=== PATIENT | female | born 1985 | race Caucasian/White ===

== ENCOUNTER 2018-04-12 02:54 | Emergency (ER) | payer OTHER ==
[2018-04-12] MEDS ORDERED: ONDANSETRON DISINTEGRATING 4 MG TAB PO ONE (03:28)
[2018-04-12] MEDS ORDERED: CEPHALEXIN 500 MG CAP PO ONE (03:28)
--- NOTE | 2018-04-12 03:37 | EDPHY ---
H & P Time Seen by Provider: 04/12/18 03:10 HPI/ROS: CHIEF COMPLAINT: Urinary tract infection HISTORY OF PRESENT ILLNESS: Patient states she has history of chronic UTIs and is supposed to be on Macrobid once daily for prevention. She states she does not do this but did start Macrobid on Tuesday when she developed "funny smelling urine". She states she also had some dysuria. She only had 5 Macrobid pills left and took 2 on Tuesday, 2 on Tuesday, only 1 on Tuesday. She was feeling better but then yesterday, Tuesday, it"came back with a vengeance". Along with mild dysuria she has nausea but no vomiting. Also complaining of left flank pain which is a rare symptom for her. She denies fevers, abdominal pain, diarrhea. REVIEW OF SYSTEMS: Constitutional: No fever, no chills. Eyes: No discharge. ENT: No sore throat. Cardiovascular: No chest pain, no palpitations. Respiratory: No cough, no shortness of breath. Gastrointestinal: No abdominal pain, no vomiting. Genitourinary: Per HPI Musculoskeletal: Left back pain. Skin: No rashes. Neurological: No headache. General Appearance: Alert, uncomfortable appearing. Eyes: Pupils equal and round no pallor or injection. ENT, Mouth: Mucous membranes moist. Respiratory: There are no retractions, lungs are clear to auscultation. Cardiovascular: Regular rate and rhythm. Gastrointestinal: Abdomen is soft and nontender, no masses, bowel sounds normal. Left CVA tenderness. Neurological: Awake, alert, no focal motor deficits. Normal gait. Skin: Warm and dry, no rashes. Musculoskeletal: Neck is supple nontender. Extremities are symmetrical, full range of motion, no edema. Psychiatric: Patient is oriented X 3, there is no agitation. Medical/surgical history: Chronic UTIs. Atrophic left kidney, congenital. Tubal ligation with reversal. Social history: Denies alcohol, tobacco, drugs. Is . 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 Smoking Status: Never smoked Constitutional: Initial Vital Signs Temperature (C) 36.9 C 04/12/18 03:08 Heart Rate 86 04/12/18 03:08 Respiratory Rate 16 04/12/18 03:08 Blood Pressure 117/74 04/12/18 03:08 O2 Sat (%) 96 04/12/18 03:08 O2 Delivery Mode Room Air Allergies/Adverse Reactions: amoxicillin Allergy (Intermediate, Verified 04/12/18 03:07) Rash Penicillins Allergy (Intermediate, Verified 04/12/18 03:07) Rash Home Medications: Medication Instructions Recorded Cephalexin [Keflex (*)] 500 mg PO Q6H #24 cap 04/12/18 Nitrofurantoin 04/12/18 Medical Decision Making ED Course/Re-evaluation: Re-evaluation, patient able to have water and crackers and tolerated oral Keflex without vomiting. Reviewed home care including rest, push fluids, use of additional Zofran. Work excuse provided for 48 hr. Differential Diagnosis: Differential diagnosis includes but is not limited to urinary tract infection, pyelonephritis, STD, gastroenteritis, . After evaluation patient with urine positive for infection, left CVA tenderness, consistent with early pyelonephritis. No fever or vomiting. Patient tolerating P. O. In the emergency department and started on cephalexin. Urine culture sent as well. No evidence of hemodynamic instability, peritonitis, or other issue. Discussed importance of completing antibiotic course and patient understands. Encouraged to follow up with her urologist in [place] for recheck. Return precautions discussed. - Data Points Medications Given: Discontinued Medications Cephalexin HCl (Keflex) 500 mg PO EDNOW ONE PRN Reason: Protocol Stop: 04/12/18 03:29 Last Admin: 04/12/18 03:32 Dose: 500 mg Ondansetron HCl (Zofran Odt) 4 mg PO EDNOW ONE Stop: 04/12/18 03:29 Last Admin: 04/12/18 03:32 Dose: 4 mg Point of Care Test Results: Urine Collection Date 04/12/18 Collection Time 03:00 HCG Results Negative Urine Dip Collection Date 04/12/18 Collection Time 03:00 Specific [place] (1.002-1.030) 1.020 PH (5.0-7.5) 6.0 Leukocytes (Negative) 3+ Nitrites (Negative) Positive Protein (Negative) 1+ Glucose (Negative) Negative Ketones (Negative) Negative Urobilnogen (0.2-1.0 EU) 0.2 Bilirubin (Negative) Negative Blood (Negative) Trace Departure - Departure Clinical Impression: Acute pyelonephritis Condition: Fair Instructions: Cephalexin (By mouth), Ondansetron (By mouth), Kidney Infection ( ED) Additional Instructions: Follow-up with your urologist later this week. We did send a urine culture which will have results back in about 48 hr. You have been treated with cephalexin, (keflex) for a 7 day course. Please complete all antibiotics. Stay well hydrated. Return to the emergency department if he develops fever, vomiting, can't finish her antibiotics or other concerning new symptoms. Stand Alone Forms: Work Excuse Prescriptions: Cephalexin [Keflex (*)] 500 mg PO Q6H #24 cap
[2018-04-12] MEDS ORDERED: CEPHALEXIN 500MG PREPACK#4 BTL TAKEHOME ONE (03:39)
[2018-04-12] MEDS ORDERED: ONDANSETRON 4MG PREPACK#2 BTL TAKEHOME ONE (03:44)
[2018-04-12 05:54] VITALS: BP 118/69
== END 2018-04-12 04:10 | disposition home or self-care (01) ==
LOC: CED 02:54
DX: N10 Acute pyelonephritis (principal)